=== PATIENT | male | born 1950 | race Caucasian/White ===

== ENCOUNTER → 2022-02-28 | Outpatient (CLI) | payer MEDICARE, SELFPAY ==
--- NOTE | 2022-02-28 09:59 | CDU_ITS ---
Reason For Study: CVA Rt. Velocities/BP Lt. Velocities/BP Prox CCA 71.1/6 cm/sec. Prox CCA 62.2/8.4 cm/sec. Mid CCA 62.6/8.8 cm/sec. Mid CCA 73.2/13.8 cm/sec. Dist CCA 62.6/11.6 cm/sec. Dist CCA 71/14.9 cm/sec. Prox ICA 71.8/15.7 cm/sec. Prox ICA 67.7/14.9 cm/sec. Mid ICA 100.3/19 cm/sec. Mid ICA 53.4/18.2 cm/sec. Dist ICA 65.2/15.7 cm/sec. Dist ICA 55.6/13.8 cm/sec. Rt. ICA/CCA = 1.60. Lt. ICA/CCA = 0.95. Prox ECA 94.9/4.7 cm/sec. Prox ECA 58.9/5.1 cm/sec. Rt. Vert. 34.6 cm/sec. Lt. Vert. 49/11.7 cm/sec. Right Extracranial There is homogeneous, smooth atherosclerotic plaque noted in the right common carotid artery. There is heterogeneous, irregular atherosclerotic plaque noted in the right internal carotid artery. There is heterogeneous, irregular atherosclerotic plaque noted in the right external carotid artery. Antegrade flow is noted in the right vertebral artery. Left Extracranial There is heterogeneous, smooth atherosclerotic plaque noted in the left common carotid artery. There is heterogeneous, irregular atherosclerotic plaque noted in the left internal carotid artery. There is heterogeneous, irregular atherosclerotic plaque noted in the left external carotid artery. Antegrade flow is noted in the left vertebral artery. Procedure Carotid Duplex [id number]. This is a Carotid Duplex examination using B-mode, color flow and specral Doppler. Exam performed in department. VL/Carotid Duplex Ultrasound Interpretation Summary Irregular calcific plaque with shadowing at the proximal right internal carotid artery with less than 50% stenosis. Less than 50% stenosis right external carotid artery Irregular calcific plaque with shadowing at the proximal left internal carotid artery which measures approximately 1.5 cm in length. Less than 50% stenosis based upon obtained [place]. Less than 50% stenosis left external carotid artery Patent and antegrade vertebral arteries bilaterally Ordering Physician: Shari Frost Referring Physician: Alem Lund Performed By: Marcela Carlin RVT
== END | disposition home or self-care (01) ==
LOC: CVS 09:57
PROVIDERS: PCP Nurse Practitioner Adult Health; Referring Provider Internal Medicine Cardiovascular Disease; Visit Provider Internal Medicine Cardiovascular Disease
DX: I65.23 Occlusion and stenosis of bilateral carotid arteries (principal); Z86.73 Personal history of transient ischemic attack (TIA), and cerebral infarction without residual deficits
CPT/HCPCS: 93880